=== PATIENT | female | born 1955 | race Caucasian/White ===

== ENCOUNTER 2024-10-10 10:55 | Outpatient (CLI) | payer MEDICARE, MEDICAID, SELFPAY ==
--- OUTSIDE RECORDS SUMMARY | 2024-10-10 11:32 | XMS_ITS | Clinical Summary ---
Author Organization [facility] Address [address] [place] [address] Care Team Providers Care Tobacco Sprayer Name Role Phone Earle Montemayor MD Primary Care Provider [phone] Source Comments [facility],non-owned Affiliates and Associated Physician Practices is amultiple site organization consisting of ambulatory clinics and hospital sitesin [place], [place], [place] and [place]. This disclosure is being madepursuant to the Care Everywhere program and may not contain all information available regarding this patient. Last updated 17.[facility] Allergies No known active allergies Medications * Be aware that medications may not be up to date on this document. Alwaysverify current medications with the patient. levothyroxine (SYNTHROID) 50 MCG tablet Take by mouth DAILY. 7 Active topiramate (TOPAMAX) 25 MG tablet Take 25 mg by mouth BID. 5 Active propranolol (INDERAL) 20 MG tablet Take 20 mg by mouth BID. 7 Active aspirin (ASPIRIN) 81 MG tablet Take 81 mg by mouth. 7 Active albuterol HFA (PROVENTIL;MAURO TOLIN;PROAIR) 108 (90 Base) MCG/ACT inhaler INL 2 PFS PO Q 4 H 0 Active atorvastatin (LIPITOR) 40 MG tablet TAKE 1 TABLET(40 MG) BY MOUTH DAILY 1 Active Blood Glucose Monitoring Suppl (FIFTY50 GLUCOSE METER 2.0) w/Device KIT Use to check blood glucose 2 times each day DX E11.65 1 Active gabapentin (NEURONTIN) 300 MG capsule Take 900 mg by mouth 3 times daily 1 Active Galcanezumab-g nlm (EMGALITY) 120 MG/ML auto-injector pen INJECT SUBCUTANEOUSLY 120MG (THE CONTENTS OF 1 PREFILLED PEN) EVERY 30 DAYS 1 Active blood glucose ([employer] BLOOD GLUCOSE TEST) test strip Check blood sugar 2 times a day Dx E11.65 1 Active insulin glargine (LANTUS SOLOSTAR) pen Inject 30 Units subcutaneously once daily 1 Active insulin pen needle (B-D UF III MINI PEN NEEDLES) 31G X 5 MM needle Use once /day for insulin pen 0 Active Lancets Micro Thin 33G MISC USE TO CHECK BLOOD GLUCOSE TWICE DAILY 1 Active metFORMIN (GLUCOPHAGE) 500 MG tablet TAKE 2 TABLETS BY MOUTH EVERY MORNING AND 1 TABLET BY MOUTH EVERY EVENING 1 Active oxybutynin (DITROPAN) 5 MG tablet Take 5 mg by mouth 3 times daily 1 Active risperiDONE (RISPERDAL) 1 MG tablet Take 1 mg by mouth once daily 1 Active sertraline (ZOLOFT) 100 MG tablet TK 1 T PO D 0 Active Active Problems Problem Noted Date Diagnosed Date Bilateral carpal tunnel syndrome 01/05/2017 Type 2 diabetes mellitus with diabetic polyneuro betsy 01/05/2017 Chronic bilateral low back pain Immunizations Immunization Administration Dates Next Due [facility] primary monoval ent 12+ yr 0.3mL Purple cap 06/25/2020,06/04/2020 Social History Tobacco Use Types Packs/Day Years Used Date Smoking Tobacco: Every Day Cigarettes 1 50 Smokeless Tobacco: Never Tobacco Cessation:Ready to Q uit: Yes; Counseling Given: Yes Alcohol Use Standard Drinks/Week Comments No 0 (1 standard drink = 0.6 oz pur e alcohol) Comments Unknown Sex and Gender Information Value Date Recorded Sex Assigned at Female 12/30/2020 6:30 PM [employer] Legal Sex Female 5:15 PM [employer] Gender Identity Female 12/30/2020 6:30 PM [employer] Sexual Orientation Straight 12/30/2020 6: 30 PM [employer] Last Filed Vital Signs Vital Sign Reading Time Taken Comments Blood Pressure 127/49 02/03/2021 8:42 AM [employer] Pulse 72 02/03/2021 8:42 AM [employer] Temperature 36.3 C (97.4 F) 01/06/2021 9:32 AM [employer] Respiratory Rate 20 01/06/2021 9:32 AM [employer] Oxygen Saturation 97% 02/03/2021 8:42 AM [employer] Inhaled Oxygen Concentration - - Weight 99.8 kg (220 lb) 02/03/2021 8:42 AM [employer] Height 160 cm (5' 3) 02/03/2021 8:42 AM [employer] Body Mass Index 38.97 02/03/2021 8:42 AM [employer] Plan of Treatment Health Maintenance Due Date Last Done Comments BONE DENSITY TESTING 1956 COLOGUARD (AGES 45-75) - COL ON CA SCREENING 1956 CT COLONOGRAPHY - COLON CA SCREENING 1956 FIT - COLON CA SCREENING 1956 FLEX SIG - COLON CA SCREENING 1956 Opioid Medication Agreement - Annual 1956 HEPATITIS C SCREENING 02/27/1974 DTAP/TDAP/TD VACCINES (1 - Tdap) 1975 PNEUMOCOCCAL VACCINE 50+ (1 of 2 - PCV) 1975 LUNG CANCER SCREENING 2006 ZOSTER VACCINE (1 of 2) 2006 Respiratory Syncytial Virus (RSV) Vaccine Pt: or over 60 yrs (1 - Risk 60-74 years 1-dose series) 2016 DIABETES-FOOT EXAM WITH MONOFILAMENT 12/02/2020 DIABETES-HGB A1C 06/25/2021 12/26/2020, 09/24/2020 DIABETES-SERUM CREATININE 12/09/2021 12/09/2020 MAMMOGRAM 09/06/2022 09/06/2020 COVID-19 VACCINE (3 - 2023-2 5 season) 2023 06/25/2020, 06/04/2020 DEPRESSION SCREENING 02/23/2024 DIABETES - URINE PROTEIN SCREENING 02/23/2024 INFLUENZA VACCINE (#1) 2024 12/13/2014 COLON MONITORING 01/08/2031 01/08/2021 COLONOSCOPY - COLON CA SCREENING 01/08/2031 01/08/2021 Colorectal Cancer Screening 01/08/2031 HEPATITIS B VACCINE Aged Out No longe r eligible based on patient's age to complete this topic HIB VACCINE Aged Out No longer eligi ble based on patient's age to complete this topic HPV VACCINE Aged Out No longer eligi ble based on patient's age to complete this topic MENINGOCOCCAL (Group B) VACCINE SHARED DECISION-MAKING Aged Out No longer eligible based on patient's age to complete this topic MENINGOCOCCAL GROUPS A/C/Y/W VACCINE Aged Out No longer eligible b ased on patient's age to complete this topic Medical Devices Implanted Type Area Bereavement Counselor Device Identifier Shelf Expiration Date Model / Serial / Lot Lead Ns 65cm Spc Surescan 3 Clmn 16 Implanted:Qty: 1 on 12/19/2020 by Saulo Strickland MD at [facility] [employer] 10/23/2023 [id number] / / [id number] Description:HELEN Kit Acc .133in Injex Leydi Baso4 Biwing Implanted:Qty: 1 on 12/19/2020 by Saulo Strickland MD at [facility] [employer] Neu[employer] 10/09/2024 [id number] / / [id number] Description:HELEN Slnt Dura Duraseal Pg Trilysine Amine 5 Implanted:Qty: 1 on 12/19/2020 by Saulo Strickland MD at [facility] [employer] Ramona 02/21/2022 [id number] / / Description:HELEN Nrstm Impl Chrnc Pain Rs2 - [id number] Implanted:Qty: 1 on 12/19/2020 by Saulo Strickland MD at [facility] [employer] 10/05/2021 [id number] / [id number] / Description:HELEN Procedures Procedure Name Priority Date/Time Associated Diagnosis Comments BASIC METABOLIC PANEL (CALCIUM TOTAL) Routine 12/09/2020 9:14 AM CDT Pre-op testing from Last 3 Months or Most Recently Relevant to Health Maintenance Results * (ABNORMAL) BASIC METABOLIC PANEL (CALCIUM TOTAL) (12/09/2020 9:14 AM CDT) [facility] Signature Glucose 167(H) 70 - 105 mg/dL 12/09/2020 10:15 AM CDT [facility] Sodium 137 136 - 145 mmol/L 12/09/2020 10:15 AM CDT [facility] Potassium 3.9 3.5 - 5.1 mmol/L 12/09/2020 10:15 AM CDT [facility] Chloride 107 98 - 107 mmol/L 12/09/2020 10:15 AM CDT [facility] CO2 21(L) 23 - 31 mmol/L 12/09/2020 10:15 AM CDT [facility] Calcium 9.2 8.4 - 10.4 mg/dL 12/09/2020 10:15 AM CDT [facility] Anion Gap 9 8 - 18 mmol/L 12/09/2020 10:15 AM CDT [facility] BUN 16 9.8 - 20.1 mg/dL 12/09/2020 10:15 AM CDT [facility] Creatinine 0.78 0.57 - 1.11 mg/dL 12/09/2020 10:15 AM CDT [facility] eGFR by MDRD >60 >60 mL/min/1.7 3m2 12/09/2020 10:15 AM CDT [facility] eGFR by MDRD >60 >60 mL/min/1.7 3m2 12/09/2020 10:15 AM CDT [facility] Blood BLOOD SPECIMEN / Unknown Venipuncture / Unknown 12/09/2020 9:14 AM CDT 12/09/2020 9:46 AM CDT us Saulo Strickland MD LAB - CHEMISTRY ORDERABL ES Final Result [facility] [address] [place] [address] from Last 3 Months or Most Recently Relevant to Health Maintenance Insurance [facility] MANAGED MEDICARE ADV MEDICAID - [facility] MANAGED MEDICARE ADV MEDICAID - [place] Care Teams Tobacco Sprayer Relationship Specialty Start Date End Date Earle Montemayor MD [address] [place] [phone] PCP - General 12/14/16
--- OUTSIDE RECORDS SUMMARY | 2024-10-10 11:32 | XMS_ITS | Clinical Summary ---
Author Organization [facility] Address [address] [place] [address] Care Team Providers Care Electrician Name Role Phone Earle Montemayor MD Primary Care Provider Allergies No known active allergies Medications aspirin (ASPIR-81) 81 mg tablet take 1 tablet by oral route every day 0 0 03/26/19 17 Active levothyroxine (SYNTHROID, LEVOTHROID) 50 mcg tablet manager site before breakfast 07/30/19 17 Active sertraline (ZOLOFT) 100 mg tablet TK 1 T PO D 12/04/19 20 Active risperiDONE (RisperDAL) 1 mg tablet Take 2 tablets (2 mg total) by mouth nightly at bedtime. 09/11/19 21 Active blood-glucose meter kit Use to check blood glucose 2 times each day DX E11.65 1 kit 04/21/19 22 Active ergocalciferol (VITAMIN D) 50,000 unit capsule Take 1 capsule (50,000 Units total) by mouth 05/03/19 22 Active busPIRone (BUSPAR) 10 mg tablet 05/24/19 24 Active risperiDONE (RisperDAL) 2 mg tablet 05/24/19 24 Active solifenacin (VESIcare) 10 mg tablet Take 1 tablet (10 mg total) by mouth daily 05/24/19 24 Active lancets (Micro Thin Lancets) 33 gauge miscIndications:D iabetic polyneuropathy associated with type 2 diabetes mellitus (HCC) USE TO CHECK BLOOD GLUCOSE 3 times DAILY 300 each 3 06/15/19 24 Active blood glucose diagnostic (Accu-Chek Guide test strips) stripIndications: Diabetic polyneuropathy associated with type 2 diabetes mellitus (HCC) USE TO CHECK BLOOD SUGAR THREE TIMES DAILY 300 strip 3 06/15/19 24 Active Accu-Chek Softclix Lancets lancets USE TO CHECK BLOOD GLUCOSE THREE TIMES DAILY 06/15/19 24 Active atorvastatin (LIPITOR) 40 mg tabletIndications :Other chest pain TAKE 1 TABLET(40 MG) BY MOUTH DAILY 90 tablet 3 11/23/19 24 Active Emgality Pen 120 mg/mL pen injector INJECT SUBCUTANEOUSLY 120 MG (THE CONTENTS OF 1 PREFILLED PEN) EVERY 30 DAYS 3 mL 3 12/15/19 24 Active SUMAtriptan (IMITREX) 100 mg tabletIndications :Migraine without aura and without status migrainosus, not intractable TAKE 1 TABLET(100 MG) BY MOUTH 1 TIME FOR UP TO 1 DOSE NEEDED FOR MIGRAINE HEADACHE. JUNE REPEAT 1 TIME AFTER 2 HOURS NEEDED 9 tablet 1 03/24/19 25 Active ondansetron (ZOFRAN) 8 mg tablet Take 1 tablet (8 mg total) by mouth 2 (two) times a day as needed 03/09/19 25 Active topiramate (TOPAMAX) 25 mg tablet TAKE 3 TABLETS BY MOUTH TWICE DAILY 600 tablet 2 04/25/19 25 Active gabapentin (NEURONTIN) 600 mg tabletIndications :Diabetic Peripheral Neuropathy Take 2 tablets (1,200 mg total) by mouth 3 (three) times a day E11.65 540 tablet 4 05/05/19 25 Active tirzepatide (Mounjaro) 7.5 mg/0.5 mL pen injector injectionIndicati ons:type 2 diabetes mellitus Inject 0.5 mL (7.5 mg total) under the skin once a week E11.9 6 mL 4 08/04/19 25 Active modafiniL (PROVIGIL) 200 mg tabletIndications :Hypersomnia with sleep apnea TAKE 1 TABLET(200 MG) BY MOUTH DAILY 90 tablet 09/05/19 25 Active dextroamphetamine -amphetamine (ADDERALL) 20 mg tabletIndications :Hypersomnia with sleep apnea Take 1 tablet (20 mg total) by mouth daily 30 tablet 09/28/19 25 Active dextroamphetamine -amphetamine (ADDERALL) 20 mg tabletIndications :Hypersomnia with sleep apnea Take 1 tablet (20 mg total) by mouth daily 30 tablet 08/29/19 25 025 Arnaud heart(Reo rder) Active Problems Problem Noted Date Diagnosed Date Type 2 diabetes mellitus wit h hypoglycemia without coma, without long-term current use of insulin 08/03/2024 Assessment & Plan (08/03/2024 4:40 PM CDT): A1c at goal with hypoglycemia Stop metformin Increase mounjaro to 7.5 mg weekly Acquired hypothyroidism 05/03/2024 Assessment & Plan (08/03/2024 4:40 PM CDT): at goal of TSH between 0.45 to 4.5 mclUnits/ml Continue levothyroxine 50 mcg daily Discussed the importance of taking Levothryoxine on a empty stomach, which means one hour before eating or two hours after eating. Informed Food in the stomach will interfere with absorption of Levothyroxine. Informed Calcium, antacids and iron supplements will interfere with the absorption of Levothyroxine, encouraged to take these at a different time of the day. freestyle roni continuous glucose monitoring de vice 01/26/2024 Assessment & Plan (08/03/2024 4:33 PM CDT): Continuous glucose monitor (cgm) applied from 07/21/2024 to 08/03/2024 This device was placed for monitor and treatment of blood sugar. Interpretation of data- average glucose 98. In target range 96%. 4% hypoglycemia. 0% hyperglycemia. GMI is 5.7%. Assessment & Plan (05/03/2024 1:22 PM CDT): Continuous glucose monitor (cgm) applied from 04/19/2024 to 05/02/2024. This device was placed for monitor and treatment of blood sugar. Interpretation of data- average glucose 82. In target range 75%. 25% hypoglycemia. 0% hyperglycemia. GMI is 5.3%. Stop Lantus insulin Assessment & Plan (01/26/2024 5:23 PM TRAIN GATE ATTENDANT): Continuous glucose monitor (cgm) applied from 01/12 to 01/26/2024 This device was placed for monitor and treatment of blood sugar. Interpretation of data- average glucose 152. In target range 74%. 2% hypoglycemia. 24% hyperglycemia. GMI is 6.9% Dizziness 10/08/2023 Bradycardia 09/30/2021 Pre-operative cardiovascular examination 021 Assessment & Plan (01/24/2021 11:46 AM TRAIN GATE ATTENDANT): Patient should have no increased cardiovascular risk for any planned back surgery or need for general anesthesia. Her aspirin can be stopped at any time prior to surgery. Abnormal stress test 11/06/2020 Overview (11/06/2020): Added automatically from request for surgery [id number] History of colon polyps 10/30/2020 Overview (10/30/2020): Added automatically from request for surgery [id number] Screen for colon cancer 10/30/2020 Overview (10/30/2020): Added automatically from request for surgery [id number] Type 2 diabetes mellitus wit h diabetic polyneuropathy, with long-term current use of insulin 12/28/2019 Assessment & Plan (08/03/2024 4:39 PM CDT): This is a chronic condition which is at goal with hypoglycemia . Goal is less than 7%. Personally reviewed most recent A1c - Lab Results Component Value Date HGBA1C 5.4 08/03/2024 Personally reviewed POC blood sugar- at goal of 80-180 Lab Results Component Value Date POCGLU 108 08/03/2024 Medication- stop metformin, increase mounjaro to 7.5 mg weekly. Denies any nausea vomiting or abdominal pain. No history of pancreatitis or thyroid cancer Monitor blood sugar continuously with freestyle Roni cgm. Encouraged annual eye exam. Monofilament foot exam completed. Protective senses not intact Continue Gabapentin eGFR- 76 Kidney function-abnormal Urine microalbumin/creatinine ratio - at goal. Goal is <30 not treated with GORDON/ARB Assessment & Plan (01/26/2024 5:21 PM TRAIN GATE ATTENDANT): This is a chronic condition which is at goal . Goal is less than 7%. Personally reviewed most recent A1c - Lab Results Component Value Date HGBA1C 7.0 01/26/2024 Personally reviewed POC blood sugar- at goal of 80-180 Lab Results Component Value Date POCGLU 172 01/26/2024 Medication- Continue Lantus insulin 26 Units Qhs, Metformin 1000 mg Qam and 500 mg Qpm. Start mounjaro 2.5mg weekly. Monitor blood sugar continuously with cgm. Encouraged annual eye exam. Monofilament foot exam completed. Protective senses - not intact Continue Gabapentin. Stable on current dose eGFR- 76 Kidney function-normal Urine microalbumin/creatinine ratio - at goal. Goal is <30 Assessment & Plan (10/18/2023 4:08 PM CDT): This is a chronic condition which is at goal . Goal is less than 7%. Personally reviewed most recent A1c - Lab Results Component Value Date HGBA1C 6.7 10/18/2023 Personally reviewed POC blood sugar- at goal of 80-180 Lab Results Component Value Date POCGLU 174 10/18/2023 Medication- Continue Lantus insulin 26 Units Qhs, Metformin 1000 mg Qam and 500 mg Qpm Monitor blood sugar 2 times a day. Continuously with freestyle Roni 3 cgm. Encouraged annual eye exam. last dilated eye exam was [facility] Monofilament foot exam completed. Loss Protective senses Treated with Gabapentin. Ambulatory referral to Dr. Rodgers for diabetic foot care eGFR- 77 Kidney function-normal Urine microalbumin/creatinine ratio - at goal. Goal is <30 not treated with GORDON/ARB Assessment & Plan (01/28/2023 2:36 PM TRAIN GATE ATTENDANT): History of type 2 DM diagnosed 2012. Started insulin December/2019 Control : in good control without hypoglycemia A1c 6.5% on 01/28/23 A1c 6.7% on 09/28/22 A1c 6.3% on 05/28/22 A1c 6.1% on 01/26/22 A1c 6.8% on 09/09/21 A1c 6.2% on 05/08/21 A1c 7.1% on 12/26/20 Neuropathy : symptomatic on medications Kidney : normal GFR 98 on 01/26/22 Plan: Patient to watch diet checking sugars 2 x per day Continue Lantus insulin 25 units /day . Continue Metformin 1000 mg Qam- 500 mg Qpm Monitor sugars 3 x per day Hypoglycemia symptoms and treatment reviewed with patient. Call if having low sugars Retina exam on annual basis. Assessment & Plan (09/28/2022 2:44 PM CDT): History of type 2 DM diagnosed 2012. Started insulin December/2019 Control : in good control without hypoglycemia A1c 6.7% on 09/28/22 A1c 6.3% on 05/28/22 A1c 6.1% on 01/26/22 A1c 6.8% on 09/09/21 A1c 6.2% on 05/08/21 A1c 7.1% on 12/26/20 Neuropathy : symptomatic on medications Kidney : normal GFR 98 on 01/26/22 Plan: Patient to watch diet checking sugars 2 x per day Continue Lantus insulin 25 units /day . Continue Metformin 1000 mg Qam- 500 mg Qpm Monitor sugars 3 x per day Hypoglycemia symptoms and treatment reviewed with patient. Call if having low sugars Retina exam on annual basis. Assessment & Plan (05/28/2022 1:30 PM CDT): History of type 2 DM diagnosed 2012. Started insulin December/2019 Control : in good control without hypoglycemia A1c 6.3% on 05/28/22 A1c 6.1% on 01/26/22 A1c 6.8% on 09/09/21 A1c 6.2% on 05/08/21 A1c 7.1% on 12/26/20 Neuropathy : symptomatic on medications Kidney : normal GFR 98 on 01/26/22 Plan: Patient to watch diet checking sugars 2 x per day Continue Lantus insulin 25 units /day . Continue Metformin 1000 mg Qam- 500 mg Qpm Monitor sugars 3 x per day Hypoglycemia symptoms and treatment reviewed with patient. Call if having low sugars Retina exam on annual basis. Assessment & Plan (01/26/2022 1:31 PM TRAIN GATE ATTENDANT): History of type 2 DM diagnosed 2012. Started insulin December/2019 Control : in tight control A1c 6.1% on 01/26/22 A1c 6.8% on 09/09/21 A1c 6.2% on 05/08/21 A1c 7.1% on 12/26/20 A1c 7.2% on 09/24/20 A1c 12.9% on 12/28/19 Neuropathy : symptomatic on medications Kidney : normal kidney functions -GFR >60 on 12/09/20 Plan: Patient to watch diet checking sugars 2 x per day Decrease Lantus insulin 28 units /day . Continue Metformin 1000 mg Qam- 500 mg Qpm Monitor sugars 3 x per day Hypoglycemia symptoms and treatment reviewed with patient. Call if having low sugars Retina exam on annual basis. Assessment & Plan (09/09/2021 2:18 PM CDT): History of type 2 DM diagnosed 2012. Started insulin December/2019 Control : in good control A1c 6.8% on 09/09/21 A1c 6.2% on 05/08/21 A1c 7.1% on 12/26/20 A1c 7.2% on 09/24/20 A1c 12.9% on 12/28/19 Neuropathy : symptomatic on medications Kidney : normal kidney functions -GFR >60 on 12/09/20 Plan: Patient to watch diet checking sugars 2 x per day continue Lantus insulin 28 units /day . Continue Metformin 1000 mg Qam- 500 mg Qpm Monitor sugars 3 x per day Hypoglycemia symptoms and treatment reviewed with patient. Call if having low sugars Retina exam on annual basis. Assessment & Plan (05/08/2021 2:33 PM CDT): History of type 2 DM diagnosed 2012. Started insulin December/2019 Control : in tight control A1c 6.2% on 05/08/21 A1c 7.1% on 12/26/20 A1c 7.2% on 09/24/20 A1c 7.3% on 06/27/20 A1c 7.2% on 03/28/20. A1c 12.9% on 12/28/19 Neuropathy : symptomatic on medications Kidney : normal kidney functions -GFR >60 on 12/09/20 Plan: Patient to watch diet checking sugars 2 x per day Decrease Lantus insulin 28 units /day . Continue Metformin 1000 mg Qam- 500 mg Qpm Monitor sugars 3 x per day Hypoglycemia symptoms and treatment reviewed with patient. Call if having low sugars Retina exam on annual basis. Assessment & Plan (12/26/2020 1:41 PM CDT): History of type 2 DM diagnosed 2012. Started insulin December/2019 Control : reasonable control A1c 7.1% on 12/26/20 A1c 7.2% on 09/24/20 A1c 7.3% on 06/27/20 A1c 7.2% on 03/28/20. A1c 12.9% on 12/28/19 Neuropathy : symptomatic on medications Kidney : normal kidney functions -GFR >60 on 12/09/20 Plan: Patient to watch diet checking sugars 2 x per day Continue Lantus insulin at 30 units /day . Continue Metformin 1000 mg Qam- 500 mg Qpm Monitor sugars 3 x per day Hypoglycemia symptoms and treatment reviewed with patient. Call if having low sugars Retina exam on annual basis. Assessment & Plan (09/24/2020 1:29 PM CDT): History of type 2 DM diagnosed 2012. Started insulin December/2019 Control : not at target- fluctuation in sugars based on diet A1c 7.2% on 09/24/20 A1c 7.3% on 06/27/20 A1c 7.2% on 03/28/20. A1c 12.9% on 12/28/19 Neuropathy : symptomatic on medications Kidney : normal kidney functions -GFR 88 on 12/19/19 Plan: Patient to watch diet checking sugars 2 x per day Continue Lantus insulin at 30 units /day . Continue Metformin 1000 mg Qam- 500 mg Qpm Monitor sugars 3 x per day Hypoglycemia symptoms and treatment reviewed with patient. Call if having low sugars Retina exam on annual basis. Assessment & Plan (06/27/2020 2:31 PM CDT): History of type 2 DM diagnosed 2012. Started insulin December/2019 Control : not at target- fluctuation in sugars based on diet A1c 7.3% on 06/27/20 A1c 7.2% on 03/28/20. A1c 12.9% on 12/28/19 A1c was 7.4% on 07/09/17. Her A1c was 6.5% in Neuropathy : symptomatic on medications Kidney : normal kidney functions -GFR 88 on 12/19/19 Plan: Patient to watch diet checking sugars 2 x per day Continue Lantus insulin at 30 units /day . Continue Metformin 1000 mg Qam- 500 mg Qpm Monitor sugars 3 x per day Hypoglycemia symptoms and treatment reviewed with patient. Call if having low sugars Retina exam on annual basis. Assessment & Plan (03/28/2020 2:32 PM TRAIN GATE ATTENDANT): History of type 2 DM diagnosed 2012. Started insulin December/2019 Control : fluctuation in sugars based on diet Over all improved control A1c 7.2% on 03/28/20. A1c 12.9% on 12/28/19 A1c was 7.4% on 07/09/17. Her A1c was 6.5% in Neuropathy : symptomatic on medications and seeing Neurology Kidney : normal kidney functions -GFR 88 on 12/19/19 Plan: Patient to continue ADA diet. checking sugars 2 x per day Continue Lantus insulin at 30 units /day but can decrease to28 units Qhs if am sugars < 90. Continue Metformin 1000 mg Qam- 500 mg Qpm Monitor sugars 3 x per day Hypoglycemia symptoms and treatment reviewed with patient. Call if having low sugars Retina exam on annual basis. Assessment & Plan (01/26/2020 2:09 PM TRAIN GATE ATTENDANT): History of type 2 DM diagnosed 2012. She was on Metformin in 2017 . Started insulin December/2019 Control : pm hyperglycemia, but overall improvement in diabetes control after starting insulin. A1c 12.9% on 12/28/19 A1c was 7.4% on 07/09/17. Her A1c was 6.5% in Neuropathy : symptomatic on medications and seeing Neurology Kidney : normal kidney functions -GFR 88 on 12/19/19 Plan: Patient to continue ADA diet. checking sugars 2 x per day Continue Lantus insulin 28 units Qhs. Increase Metformin 1000 mg Qam- 500 mg Qpm Send blood sugars in 2 week. Target am sugars 90-150. Hypoglycemia symptoms and treatment reviewed with patient. Call if having low sugars Retina exam on annual basis. Assessment & Plan (12/28/2019 4:54 PM TRAIN GATE ATTENDANT): History of type 2 DM diagnosed 2012. She was on Metformin in 2018 . Control : very high sugars with symptoms Had blood sugar of 430 A1c 12.9% on 12/28/19 A1c was 7.4% on 07/09/17. Her A1c was 6.5% in Neuropathy : symptomatic on medications and seeing Neurology Kidney : normal kidney functions -GFR 88 on 12/19/19 Plan: Patient asked to start ADA diet- low carbs - 3 meals . Start checking sugars 2 x per day Start Lantus insulin 14 units Qhs. Start Metformin 500 mg bid. Send blood sugars in one week. Target am sugars 90-150. Hypoglycemia symptoms and treatment reviewed with patient. Call if having low sugars Retina exam on annual basis. Mixed diabetic hyperlipidemi a associated with type 2 diabetes mellitus 10/11/2019 Assessment & Plan (08/03/2024 4:40 PM CDT): at Goal of LDL less than 70. Continue atorvastatin Encouraged to eat healthy, include fresh fruits and vegetables daily and avoid eating fried foods more than once per week. Assessment & Plan (01/26/2024 5:21 PM TRAIN GATE ATTENDANT): This is a chronic condition which is at goal . Goal is LDL less than 70 Continue atorvastatin Encouraged to eat healthy, include fresh fruits and vegetables daily and avoid eating fried foods more than once per week. Assessment & Plan (10/18/2023 2:36 PM CDT): This is a chronic condition which is at . Goal is LDL less than 70 Continue atorvastatin Encouraged to eat healthy, include fresh fruits and vegetables daily and avoid eating fried foods more than once per week. Assessment & Plan (06/15/2023 2:25 PM CDT): This is a chronic condition which is at goal . Goal is LDL less than 70 Continue atorvastatin,. Triglycerides elevated at 152 Encouraged to eat healthy, include fresh fruits and vegetables daily and avoid eating fried foods more than once per week. Encouraged to take medications as prescribed. Assessment & Plan (01/28/2023 2:35 PM TRAIN GATE ATTENDANT): Controlled with Lipitor - low fat diet - continue medication per PCP Assessment & Plan (09/28/2022 2:44 PM CDT): Controlled with Lipitor - low fat diet - continue medication per PCP Assessment & Plan (05/28/2022 1:31 PM CDT): Controlled with Lipitor - low fat diet - continue medication per PCP Assessment & Plan (01/26/2022 1:30 PM TRAIN GATE ATTENDANT): Controlled with Lipitor - low fat diet - continue medication per PCP Assessment & Plan (09/09/2021 2:21 PM CDT): Controlled with Lipitor - low fat diet - continue medication per PCP Assessment & Plan (05/08/2021 2:33 PM CDT): Controlled with Lipitor - low fat diet - continue medication per PCP Assessment & Plan (12/26/2020 1:41 PM CDT): Controlled with Lipitor - low fat diet - continue medication per PCP Assessment & Plan (03/28/2020 2:33 PM TRAIN GATE ATTENDANT): Controlled with Lipitor - low fat diet - continue medication per PCP Assessment & Plan (10/11/2019 1:42 PM CDT): Patient's lipid profile from April looked excellent with an LDL value of 50 mg/dL. Bilateral carotid artery stenosis 04/19/2019 Assessment & Plan (01/24/2021 11:45 AM TRAIN GATE ATTENDANT): Patient has mild carotid disease and should continue with aggressive secondary risk factor modification. Her ultrasound in 1-2 years would be suggested Assessment & Plan (10/21/2020 2:54 PM CDT): It has been 18 months since we have evaluated her moderate carotid disease. We will update this with more recent carotid duplex. Assessment & Plan (10/11/2019 1:41 PM CDT): Patient remains asymptomatic with her mild bilateral carotid artery stenosis. She will continue with aggressive secondary risk factor modification. Thoracic aortic atherosclerosis 01/17/2019 Overview (01/17/2019): Identified on chest CT 2014 Smoker 12/16/2018 Assessment & Plan (01/24/2021 11:45 AM TRAIN GATE ATTENDANT): I did again stressed the importance of smoking cessation Assessment & Plan (10/21/2020 2:55 PM CDT): I again stressed the importance of smoking cessation. Assessment & Plan (10/11/2019 1:41 PM CDT): I commended the patient on her efforts toward smoking cessation as she is now down to 4 cigarettes a day. I have encouraged her to continue to be striving for complete cessation. Other chest pain 12/15/2018 Assessment & Plan (01/24/2021 11:43 AM TRAIN GATE ATTENDANT): Patient's chest pain at this point is noncardiac. Because of her diabetes she will continue with aggressive secondary risk factor modification. Assessment & Plan (10/21/2020 2:55 PM CDT): In light of the patient's known diabetes and known atherosclerotic disease a plan to further investigate her chest discomfort with Lexiscan stress testing. If she has no new defects compared to November of 2018 we will continue with conservative management. Shortness of breath 12/15/2018 Bilateral carpal tunnel syndrome 02/01/2017 Paronychia of toe 06/24/2016 Fibromyalgia 11/12/2015 Weight loss 11/30/2014 Hypersomnia with sleep apnea 05/29/2013 Obstructive sleep apnea syndrome 09/28/2011 Essential hypertension 09/28/2011 Assessment & Plan (08/03/2024 4:41 PM CDT): Blood pressure at goal without medication Chronic headache 04/28/2011 Overview (05/29/2016): Chronic headaches Hypersomnia 04/28/2011 Overview (05/29/2016): Hypersomnia Class 1 obesity due to exces s calories with serious comorbidity and body mass index (BMI) of 31.0 to 31.9 in adult 04/28/2011 Overview (06/15/2023): >>OVERVIEW FOR SEVERE OBESITY (BMI 35.0-35.9 WITH COMORBIDITY) ([facility]) WRITTEN ON 05/29/2016 5:21 AM BY INTERFACE, PROBLEM LIST CONVERSION Obesity Assessment & Plan (08/03/2024 4:41 PM CDT): Not at Goal of BMI less than 30. 14 lb weight loss since last office visit. Increase mounjaro to 7.5 mg weekly Encouraged healthy eating which includes a low carb diet. Avoiding processed foods, sweets and fried foods. Encouraged 30 minutes of walking at least 5 days per week. Encouraged to weigh self at home weekly. Discussed that exercise can be broken down into small sessions- for example 2- 15 minutes sessions or 3- 10 minutes sessions. Assessment & Plan (01/26/2024 5:21 PM TRAIN GATE ATTENDANT): This is a chronic condition which continues 4 lbs. Weight gain since last office visit Start mounjaro Encouraged healthy eating which includes a low carb diet. Avoiding processed foods, sweets and fried foods. Encouraged 30 minutes of walking at least 5 days per week Discussed that exercise can be broken down into small sessions- for example 2- 15 minutes sessions or 3- 10 minutes sessions. Assessment & Plan (10/18/2023 2:37 PM CDT): This is a chronic condition which continues Weight stable since last office visit Encouraged healthy eating which includes a low carb diet. Avoiding processed foods, sweets and fried foods. Encouraged 30 minutes of walking at least 5 days per week Discussed that exercise can be broken down into small sessions- for example 2- 15 minutes sessions or 3- 10 minutes sessions. Assessment & Plan (06/15/2023 2:28 PM CDT): This is a chronic condition which continues Weight stable since last office visit Encouraged healthy eating which includes a low carb diet. Avoiding processed foods, sweets and fried foods. Encouraged 30 minutes of walking at least 5 days per week Assessment & Plan (06/15/2023 2:27 PM CDT): >>ASSESSMENT AND PLAN FOR SEVERE OBESITY (BMI 35.0-35.9 WITH COMORBIDITY) (HCC) WRITTEN ON 10/11/2019 1:41 PM BY SARAH CISNEROS DO The I commended the patient on her excellent weight loss efforts of 20 lb. Chronic bronchitis 10/01/2010 Resolved Problems Problem Noted Date Diagnosed Date Resolved Date Diabetic polyneuropathy asso ciated with type 2 diabetes mellitus 06/24/2016 10/18/2023 Assessment & Plan (06/15/2023 2:25 PM CDT): This is a chronic condition which is at goal . Goal is less than 7%. Personally reviewed most recent A1c - Lab Results Component Value Date HGBA1C 6.6 06/15/2023 Personally reviewed POC blood sugar- at goal of 80-180 Lab Results Component Value Date POCGLU 114 06/15/2023 Medication- Continue Lantus insulin 26 Units Qhs, Metformin 1000 mg Qam and 500 mg Qpm Monitor blood sugar 2 times a day. Encouraged annual eye exam. last dilated eye exam was [facility] Peripheral neuropathy Treated with Gabapentin. Feels neuropathy is worsening. Sees pain management. Feels gabapentin helps take the edge off but does not stopped the pain Personally reviewed CMP eGFR- 77 Kidney function-abnormal Urine microalbumin/creatinine ratio - at goal. Goal is <30 not treated with GORDON/ARB B/P today- at goal . Goal is <140/90. Assessment & Plan (06/15/2023 2:22 PM CDT): >>ASSESSMENT AND PLAN FOR TYPE 2 DIABETES MELLITUS WITH DIABETIC POLYNEUROPATHY (HCC) WRITTEN ON 06/27/2020 2:29 PM BY JONNY BRAY MD Responding to gabapentin - continue medication - educated about foot care. Assessment & Plan (06/15/2023 2:22 PM CDT): >>ASSESSMENT AND PLAN FOR TYPE 2 DIABETES MELLITUS WITH DIABETIC POLYNEUROPATHY (HCC) WRITTEN ON 09/24/2020 1:34 PM BY JONNY BRAY MD Patient also has back problems and seeing pain management - continue gabapentin per pain specialist Encounters Date Type Department Care Team Description 08/17/2024 Results Follow-Up [facility] at [address] [phone] Dionne Fortune NP Basic metabolic panel, eGFR 08/16/2024 3:00 PM CDT Lab [facility] - Outpatient Center at [address] [address] Hyponatremia 08/16/2024 Results Follow-Up [facility] at [address] [phone] Natividad Olea MA Lipid panel, Comprehensive metabolic panel, Albumin Creatinine Ratio, Urine, eGFR 08/13/2024 Orders Only [facility] at [address] [phone] Dionne Fortune NP Hyponatremia (Primary Dx) 08/03/2024 2:50 PM CDT Lab [facility] - Outpatient Center at [address] [address] Type 2 diabetes mellitus with diabetic polyneuropathy, with long-term current use of insulin (HCC) 08/03/2024 2:00 PM CDT Office Visit [facility] at [address] [phone] Dionne Fortune, MADINA Type 2 diabetes mellitus with diabetic polyneuropathy, without long-term current use of insulin (HCC) (Primary Dx); Type 2 diabetes mellitus with hypoglycemia without coma, without long-term current use of insulin (HCC); Mixed diabetic hyperlipidemia associated with type 2 diabetes mellitus (HCC); Acquired hypothyroidism; Essential hypertension; freestyle roni continuous glucose monitoring device; Class 1 obesity due to excess calories with serious comorbidity and body mass index (BMI) of 31.0 to 31.9 in adult 07/11/2024 2:00 PM CDT Office Visit [facility] [address] [place] [address] [address] [place] [phone] Birdie Mc MD Hypersomnia with sleep apnea (Primary Dx); ELVIS (obstructive sleep apnea); Migraine without aura and without status migrainosus, not intractable; Severe obesity (BMI 35.0-35.9 with comorbidity) (HCC) from Last 3 Months Surgical History Surgery Date Site/Laterality Comments HYSTERECTOMY 02/22/2003 - 02/22/2004 Hysterectomy BREAST CYST ASPIRATION Left FRACTURE SURGERY TUBAL LIGATION 02/22/1983 - 02/22/1984 COLONOSCOPY 01/30/2015 Medical History Medical History Date Comments Bipolar I disorder (HCC) Bipolar I Hx Other Medical Anoriexia/bulim ia Anxiety disorder Anxiety Hx Other Medical Headache, migra ine Depression Depression Rheumatic fever Rheumatic fever Hx Other Medical Mental illness Smoking Hypertension Carotid artery disease Chest pain Shortness of breath Diabetes mellitus (HCC) Hyperlipidemia Sleep apnea Migraines Stroke (HCC) Thyroid disease Aneurysm AAA (abdominal aortic aneurysm) COPD (chronic obstructive pulmonary disease) Type 2 diabetes mellitus Arthritis Family History Medical History Relation Name Comments Cancer Father Howie Other Father Howie unknown; Cause of : unknown Breast cancer Father's Sister Arthritis Maternal Grandmother Aubree Gomezysm Mother Heide aneurysm; Cause of : aneurysm Depression Mother Heide Diabetes Mother Heide Mental illness Mother Heide Cancer Other 1 Family history of Cancer; Diabetes Other 2 Family history of Diabetes mellitus; Hypertension Other 3 Family history of Hypertension; Migraines Other 4 Family history of Migraine; Kidney disease Other 5 Family histor y of Renal disease; Seizures Other 6 Family history of Seizure disorder; Other Other 7 Family history of psychiatric disease; Other Other 8 Family history of aneurysm; Other Other 9 Family history of Tuberculosis; Hypertension Burt Kirk Kidney disease Burt Kirk Relation Name Status Comments Father Howie (Age 70) Father's Sister Maternal Grandmother Aubree Mother Heide (Age 49) Other 1 Other 2 Other 3 Other 4 Other 5 Other 6 Other 7 Other 8 Other 9 Burt Kirk Social History Tobacco Use Types Packs/Day Years Used Date Smoking Tobacco: Every Day Cigarettes 1 15 Started: 12/24/2003; Last attempted to quit: 12/23/2018 Smokeless Tobacco: Never Tobacco Cessation:Ready to Q uit: Not Asked; Counseling Given: Not Answered Alcohol Use Standard Drinks/Week Comments No 0 (1 standard drink = 0.6 oz pur e alcohol) AUDIT-C Answer Date Recorded Q1: How often do you have a drink containing alc ohol? 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 Gender Identity Female 12/16/2020 7:18 AM CDT Sexual Orientation Straight 09/07/2019 9: 26 AM CDT Obstetrics History Para Term AB IAB SAB Ectopic Multiple Livin g Live Births 5 4 4 Date Outcome GA Total Labor Labor/3rd Weight Sex Type Anes PTL Dotty A1 A5 Name Clin Term Term Term Term Last Filed Vital Signs Vital Sign Reading Time Taken Comments Blood Pressure 100/70 08/03/2024 2:22 PM CDT Pulse 72 07/11/2024 1:53 PM CDT Temperature 36.4 C (97.6 F) 06/20/2021 12:37 PM CDT Respiratory Rate 18 12/15/2022 2:15 PM CDT Oxygen Saturation 96% 07/11/2024 1:53 PM CDT Inhaled Oxygen Concentration - - Weight 81.8 kg (180 lb 6.4 oz) 08/03/2024 2:22 P M CDT Height 160 cm (5' 2.99) 08/03/2024 2:22 PM CDT Body Mass Index 31.97 08/03/2024 2:22 PM CDT Plan of Treatment Health Maintenance Due Date Last Done Comments Hepatitis C Screening 1955 Hepatitis B Screening 1974 Zoster Vaccine (1 of 2) 2006 Pneumococcal vaccine 65+ (2 of 2 - PPSV23, PCV20, or PCV21) 11/24/2017 09/29/2017 Depression Screening 12/16/2019 12/15/2018, 12/15/2018, 02/01/2017 Well Visit 65+ 2021 Fall Risk Assessment 01/08/2022 01/08/2021 Influenza Vaccine (#1) 2024 9, 03/04/2016, 12/13/2014, Additional history exists Lung Cancer Screening 11/19/2024 11/19/2023 , 04/20/2023, 03/07/2021 Breast Cancer Screening-Mammogram 12/02/2024 12/03/2023, 10/10/2022, 10/10/2022, Additional history exists Foot Exam 01/25/2025 01/26/2024, 09/23, 09/28/2022, Additional history exists Hemoglobin A1C 02/02/2025 08/03/2024, 04/22, 01/26/2024, Additional history exists Osteoporosis Screening-Bone Density Scan 04/02/2025 04/02/2023, 03/24/2021 Dilated Eye Exam 06/22/2025 06/23/2023, 09/20/2019 Albumin Creatinine Ratio, Urine 08/03/2025 08/03/2024, 10/18/2023, 01/28/2023, Additional history exists Lipid Panel 08/03/2025 08/03/2024, 09/23, 01/28/2023, Additional history exists eGFR 08/16/2025 08/16/2024, 07/23, 10/18/2023, Additional history exists DTaP/Tdap/Td Vaccine (2 - Td or Tdap) 09/06/2030 09/06/2020 Colon Cancer Screening-Colonoscopy 01/08/2031 01/08/2021, 01/30/2015, 01/30/2015, Additional history exists Colon Cancer Screening-CT Colonography Discontinued 01/08/2021, 01/30/2015, 01/30/2015, Additional history exists Colon Cancer Screening-DNA Stool Discontinued 01/08/2021, 01/30/2015, 01/30/2015, Additional history exists Colon Cancer Screening-FIT Discontinued 01/08, 01/30/2015, 01/30/2015, Additional history exists Colon Cancer Screening-Sigmoidoscopy Discontinued 01/08/2021, 01/30/2015, 01/30/2015, Additional history exists Medical Devices Implanted 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 Device 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 Shelf Expiration Date Model / Serial / Lot [employer] [id number] Angio-Seal Evolution 6fr .035in Guidewire Bypass Tube Suture - [id number] Implanted:Qty: 1 on 11/15/2020 by Sumit Mares MD at [facility] Other - see comments [employer] 05/22/2021 [id number] / / [id number] Procedures Procedure Name Priority Date/Time Associated Diagnosis Comments EGFR Routine 08/16/2024 2:59 PM CDT Hyponatremia BASIC METABOLIC PANEL Routine 08/16/2024 2:59 PM CDT Hyponatremia EGFR Routine 08/03/2024 2:54 PM CDT Type 2 diabetes mellitus with diabetic polyneuropathy, with long-term current use of insulin (HCC) ALBUMIN CREATININE RATIO, URINE Routine 08/03/2024 2:54 PM CDT Type 2 diabetes mellitus with diabetic polyneuropathy, with long-term current use of insulin (HCC) COMPREHENSIVE METABOLIC PANEL Routine 08/03/2024 2:54 PM CDT Type 2 diabetes mellitus with diabetic polyneuropathy, with long-term current use of insulin (HCC) LIPID PANEL Routine 08/03/2024 2:54 PM CDT Type 2 diabetes mellitus with diabetic polyneuropathy, with long-term current use of insulin (HCC) POCT HEMOGLOBIN A1C Routine 08/03/2024 2 :24 PM CDT Type 2 diabetes mellitus with diabetic polyneuropathy, without long-term current use of insulin (HCC) POCT GLUCOSE Routine 08/03/2024 2:23 PM CDT Type 2 diabetes mellitus with diabetic polyneuropathy, without long-term current use of insulin (HCC) SCREENING MAMMOGRAM BILATERAL W ANTHONY Schedule Routine, Read Routine (OP Routine) 12/03/2023 2:54 PM CDT Screening mammogram, encounter for CT CHEST WO CONTRAST F/U LUNG SCREEN PROTOCOL Schedule Routine, Read Routine (OP Routine) 11/19/2023 1:39 PM CDT Other nonspecific abnormal finding of lung field DIABETIC EYE EXAM Routine 06/23/2023 DEXA AXIAL SKELETON BONE DENSITY 1 OR MORE SITES Schedule Routine, Read Routine (OP Routine) 04/02/2023 1:27 PM 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 73 m2 Comment: Interpretive Data Reference Interval Normal >/= 90 mL/min/1.73m2 Mildly decreased* 60 - 89 mL/min/1.73m2 Mildly to moderately decreased 45 - 59 mL/min/1.73m2 Moderately to severely decreased 30 - 44 mL/min/1.73m2 Severely decreased 15 - 29 mL/min/1.73m2 Kidney Failure < 15 mL/min/1.73m2 *Relative to young adult level Estimated glomerular filtration rate is determined by the 2020 CKD-EPI equation recommended by the National Kidney Foundation (A Unifying Approach to GFR Estimation: Recommendations of the NKF-ASK Task Force on Reassessing the Inclusion of Race in Diagnosing Kidney Disease, JASN 2020). The CKD-EPI equation should not be used for patients with unstable renal function and has not been validated in children and those over 70. Current interpretive data was last reviewed 2020. Testing performed by: , [address] [place] [address], [place]., [address] Blood 08/16/2024 2:59 PM CDT 08/16/2024 6:49 PM CDT us Dionne Fortune NP LAB BLOOD ORDERABLES Final Resu lt SELIN [address] Department [place] [address] * (ABNORMAL) Basic metabolic panel (08/16/2024 2:59 PM CDT) Sodium 134(L) 135 - 145 mmol/L Comment:Testing performed by : [address] [address] Potassium, pl 4.0 3.3 - 4.9 mmol/L CERNER CH Comment:Testing performed by : [address], [address] Chloride 98 97 - 110 mmol/L [facility]ERNER CH Comment:Testing performed by : , [address] [place] [address], [address] CO2 25 22 - 32 mmol/L C[facility]ER CH Comment:Testing performed by : , [address] [place] [address], [address] Anion gap 11 2 - 15 mmol/L C[facility]ER CH Comment:Testing performed by : [address], [address] BUN 6 6 - 25 mg/dL CERNER CH Comment:Testing performed by : [address], [address] Creatinine 0.63 0.60 - 1.10 mg/dL CERNER CH Comment:Testing performed by : [address], [address] Glucose 85 70 - 199 mg/dL CERNER Comment: Interpretive Data Fasting glucose >/= 126 mg/dl is diagnostic for diabetes. Fasting is defined as no caloric intake for at least 8 hours. Fasting glucose between 100 mg/dl to 125 mg/dl is diagnostic of prediabetes. In a patient with classic symptoms of hyperglycemia or hyperglycemic crisis, a random glucose >/= 200 mg/dl is diagnostic for diabetes. In the absence of unequivocal hyperglycemia, results should be confirmed by repeat testing. The classification and Diagnosis of Diabetes Diabetes Care 2021; 46: S19-S40. Current interpretive data was last revised 2022. Testing performed by: [address] [address] Calcium 9.1 8.5 - 10.3 mg/dL CERNER Comment:Testing performed by : [address], [address] Blood 08/16/2024 2:59 PM CDT 08/16/2024 5:59 PM CDT Dionne Fortune NP LAB BLOOD ORDERABLES Final Resu lt Performing Organization Address [facility] de Phone Number SELIN [address] Department [place] [address] * eGFR (08/03/2024 2:54 PM CDT) eGFR >90 >=60 mL/min/1. 73 m2 Comment: Interpretive Data Reference Interval Normal >/= 90 mL/min/1.73m2 Mildly decreased* 60 - 89 mL/min/1.73m2 Mildly to moderately decreased 45 - 59 mL/min/1.73m2 Moderately to severely decreased 30 - 44 mL/min/1.73m2 Severely decreased 15 - 29 mL/min/1.73m2 Kidney Failure < 15 mL/min/1.73m2 *Relative to young adult level Estimated glomerular filtration rate is determined by the 2020 CKD-EPI equation recommended by the National Kidney Foundation (A Unifying Approach to GFR Estimation: Recommendations of the NKF-ASK Task Force on Reassessing the Inclusion of Race in Diagnosing Kidney Disease, JASN 2020). The CKD-EPI equation should not be used for patients with unstable renal function and has not been validated in children and those over 70. Current interpretive data was last reviewed 2020. Testing performed by: , [address] [place] [address]., [address] Blood 08/03/2024 2:54 PM CDT 08/03/2024 7:50 PM CDT us Dionne Fortune NP LAB BLOOD ORDERABLES Final Resu lt Performing Organization Address [facility]/ZIP Co de Phone Number SELIN FORDE [phone] [address] Department [place] [address] * (ABNORMAL) Albumin Creatinine Ratio, Urine (08/03/2024 2:54 PM CDT) Albumin Ur 44.8 mg/L Comment: Interpretive Data No reference range established. Current interpretive data was last revised 2018. Testing performed by: , [address] [place] [address]., [address] Creatinine Ur 37.4 mg/dL SELIN FORDE Comment: Interpretive Data No reference range established. Current interpretive data was last revised 2018. Testing performed by: , [address] [place] [address]., [address] Albumin Creatinine Ratio, Ur 120(H) 1 - 29 mg/g SELIN FORDE Comment:Testing performed by : , [address] [place] [address]., [address] Urine 08/03/2024 2:54 PM CDT 08/03/2024 7:47 PM CDT us Dionne Fortune NP LAB URINE ORDERABLES Final Resu lt SELIN [facility] Department [place] [address] * Lipid panel (08/03/2024 2:54 PM CDT) Cholesterol 115 30 - 199 mg/dL Comment: Interpretive Data Ages < or = 19 years Acceptable: <170 mg/dL Borderline high: 170-199 mg/dL High: >or= 200 mg/dL Ages > or = 20 years Desirable: <200 mg/dL Borderline high: 200-239 mg/dL High: >or= 240 mg/dL Literature References: 1. Expert Panel on Integrated Guidelines for Cardiovascular Health and Risk Reduction in Children and Adolescents. Pediatrics 2011;128:S213 2. NCEP Expert Panel. Circulation 2004;110:227 Current Interpretive Data was last revised on 2017. Testing performed by: , [address] [place] [address]., [address] Triglycerides 103 <=149 mg/dL SELIN FORDE Comment: Interpretive Data Ages < or = 9 years Acceptable: <75 mg/dL Borderline high: 75-99 mg/dL High: >or= 100 mg/dL Ages 10 to 20 years Acceptable: <90 mg/dL Borderline high: 90-129 mg/dL High: >or= 130 mg/dL Ages > or = 20 years Desirable: <150 mg/dL Borderline high: 150-199 mg/dL High: 200-499 mg/dL Very high: >or= 499 mg/dL Literature References: 1. Expert Panel on Integrated Guidelines for Cardiovascular Health and Risk Reduction in Children and Adolescents. Pediatrics 2011;128:S213 2. NCEP Expert Panel. Circulation 2004;110:227 Current Interpretive Data was last revised on 2017. Testing performed by: , [address] [place] [address]., [address] HDL 47 >=40 mg/dL [facility] Comment: Interpretive Data Ages < or = 19 years Acceptable: >45 mg/dL Borderline low: 40-45 mg/dL Low: <40 mg/dL Ages > or = 20 years Desirable: >or= 60 mg/dL Low: <40 mg/dL Literature References: 1. Expert Panel on Integrated Guidelines for Cardiovascular Health and Risk Reduction in Children and Adolescents. Pediatrics 2011;128:S213 2. NCEP Expert Panel. Circulation 2004;110:227 Current Interpretive Data was last revised on 2017. Testing performed by: , [address] [place] [address]., [address] LDL, calculated 49 <=129 mg/dL [facility] Comment: Interpretive Data Ages < or = 19 years Acceptable: <110 mg/dL Borderline high: 110-129 mg/dL High: >or= 130 mg/dL Ages > or = 20 years Optimal: <100 mg/dL Near optimal: 100-129 mg/dL Borderline high: 130-159 mg/dL High: >160 mg/dL Calculated using the [place] LDL-C estimating equation. This equation was implemented on 2023. Prior to this date LDL-C was estimated using the Friedewald equation. Literature References: 1. Expert Panel on Integrated Guidelines for Cardiovascular Health and Risk Reduction in Children and Adolescents. Pediatrics 2011;128:S213 2. NCEP Expert Panel. Circulation 2004;110:227 3. [place] Benjamin al. CARITO Cardiol. 2020 June 22;5(5):540-548. doi: 10.1001/jamacardio.2020.0013 Current Interpretive Data was last revised on 2023. Testing performed by: [address] [address] Non-HDL Cholesterol 68 mg/dL SELIN Comment: Interpretive Data Ages < or = 19 years Acceptable: <120 mg/dL Borderline high: 120-144 mg/dL High: >145 mg/dL Ages > or = 20 years When triglycerides are >200 mg/dL, Non-HDL cholesterol is a secondary target of therapy with treatment goals that are 30 mg/dL greater than the LDL cholesterol target. Literature References: 1. Expert Panel on Integrated Guidelines for Cardiovascular Health and Risk Reduction in Children and Adolescents. Pediatrics 2011;128:S213 2. NCEP Expert Panel. Circulation 2004;110:227 Current Interpretive Data was last revised on 2017. Testing performed by: [address] [address] Chol/HDL ratio 2 SELIN Comment:Testing performed by : [address] [address] Blood 08/03/2024 2:54 PM CDT 08/03/2024 7:47 PM CDT Narrative SELIN - 08/03/2024 8:16 PM CDT These lab test should be done fasting. This means do not eat or drink for at least 12 hours prior to getting your blood drawn. us Dionne Fortune NP LAB BLOOD ORDERABLES Final Resu lt [address] Department [place] [address] * (ABNORMAL) Comprehensive metabolic panel (08/03/2024 2:54 PM CDT) Sodium 128(L) 135 - 145 mmol/L Comment:Testing performed by : [address] [address] Potassium, pl 4.5 3.3 - 4.9 mmol/L SELIN Comment:Testing performed by : [address] [address] Chloride 94(L) 97 - 110 mmol/L SELIN Comment:Testing performed by : [address] [address] CO2 25 22 - 32 mmol/L CERNER CH Comment:Testing performed by : [address] [address] Anion gap 9 2 - 15 mmol/L C[facility]ER CH Comment:Testing performed by : [address] [address] BUN 6 6 - 25 mg/dL [facility]ER CH Comment:Testing performed by : [address], [address] Creatinine 0.57(L) 0.60 - 1.10 mg/dL CERNER CH Comment:Testing performed by : [address], [address] Glucose 95 70 - 199 mg/dL [facility] CH Comment: Interpretive Data Fasting glucose >/= 126 mg/dl is diagnostic for diabetes. Fasting is defined as no caloric intake for at least 8 hours. Fasting glucose between 100 mg/dl to 125 mg/dl is diagnostic of prediabetes. In a patient with classic symptoms of hyperglycemia or hyperglycemic crisis, a random glucose >/= 200 mg/dl is diagnostic for diabetes. In the absence of unequivocal hyperglycemia, results should be confirmed by repeat testing. The classification and Diagnosis of Diabetes Diabetes Care 202; 46: S19-S40. Current interpretive data was last revised 2022. Testing performed by: [address] [address] Calcium 9.1 8.5 - 10.3 mg/dL [facility] CH Comment:Testing performed by : [address] [address] Bilirubin, total 0.3 0.1 - 1.2 mg/dL [facility] CH Comment:Testing performed by : [address] [address] Protein, pl 7.5 6.5 - 8.5 g/dL [facility] CH Comment:Testing performed by : [address] [address] Albumin 4.0 3.5 - 5.0 g/dL [facility] CH Comment:Testing performed by : [address] [address] Alk phos 82 40 - 130 Units/L [facility] CH Comment:Testing performed by : [address], [address] ALT 9 7 - 45 Units/L [facility] Comment:Testing performed by : , [address] [place] [address]., [address] AST 19 10 - 45 Units/L [facility] Comment:Testing performed by : , [address] [place] [address]., [address] Blood 08/03/2024 2:54 PM CDT 08/03/2024 7:47 PM CDT Dionne Fortune NP LAB BLOOD ORDERABLES Final Resu lt [facility] [id number] [place] [address] Department [place] [address] * POCT hemoglobin A1c (08/03/2024 2:24 PM CDT) Hemoglobin A1C, POC 5.4 4.0 - 5.6 % Blood 08/03/2024 2:24 PM CDT Dionne Fortune NP POINT OF CARE TEST ORDERABLES F inal Result * POCT glucose (08/03/2024 2:23 PM CDT) Glucose Blood, POC 108 Normal Fasting 70 - 100, Random <200 mg/dL Blood 08/03/2024 2:23 PM CDT Dionne Fortune NP POINT OF CARE TEST ORDERABLES F inal Result * Screening Mammogram Bilateral W Anthony (12/03/2023 2:54 PM CDT) Anatomical Region Laterality Modality Breast Bilateral Mammography 12/03/2023 5:43 PM CDT Impressions 12/03/2023 5:43 PM CDT There is no mammographic evidence of malignancy. The patient may continue screening mammography as per ACR guidelines. FINAL ASSESSMENT: BI-RADS Category 1: Negative. Electronically signed by: Basia Ray M.D. Narrative 12/03/2023 5:43 PM CDT EXAMINATION: BILATERAL SCREENING MAMMOGRAM WITH TOMOGRAPHY COMPARISON(S): 10/10/2022 TECHNIQUE: Full-field 2D and digital breast tomosynthesis (DBT) images were obtained. CAD was utilized. BREAST PARENCHYMAL COMPOSITION: There are scattered areas of fibroglandular density. FINDINGS: There are no suspicious masses. No suspicious calcifications are seen. There is no unexplained architectural distortion. There is no skin thickening seen. There are no mammographically abnormal lymph nodes seen in the axillae or elsewhere. us Self Screening Mammogram IMG MAMMO PROCEDURES Fi nal Result * CT Chest WO Contrast F/U Lung Screen Protocol (11/19/2023 1:39 PM CDT) Anatomical Region Laterality Modality Chest N/A Computed Tomogra phy 11/22/2023 8:34 AM CDT Narrative 11/22/2023 8:52 AM CDT EXAM DESCRIPTION: CT CHEST WO CONTRAST F/U LUNG SCREEN PROTOCOL REASON FOR STUDY: Screening CT of the chest in a current smoker with a 46 pack year smoking history. Additional history: Multiple pulmonary nodules seen on prior screening lung CT TECHNIQUE: Low dose CT scan of the chest was performed without intravenous contrast using helical scanning technique. The exam extends from the lung apices through the lung bases. Automatic exposure control was used as a dose optimization technique. NOTE: This study was performed for the specific purposes of lung cancer screening and is not an alternative to diagnostic chest CT. RADIATION DOSE: CT dose index volume (CTDIvol) = 2.49 mGy COMPARISON: 04/20/2023, 11/03/2016 FINDINGS: SMOKING RELATED LUNG DISEASE: No significant emphysematous changes. LUNG NODULES: Multiple unchanged pulmonary nodules, including: Unchanged 2 mm medial subpleural superior segment right lower lobe pulmonary nodule (4; 120). Unchanged 3 mm anterior right upper lobe pulmonary nodule (4; 70). Unchanged 3 mm right apical pulmonary nodule (4; 53). Unchanged 2 mm right apical pulmonary nodule (4; 37). Unchanged 4 mm linear nodule in the anterior right upper lobe (4; 65). Decreased conspicuity of right posterolateral right upper lobe 3 mm nodule (4; 68). No new or enlarging suspicious pulmonary nodules. CORONARY ARTERY CALCIFICATION: Mild. OTHER: Trace secretions within the trachea. Subsegmental atelectasis/scarring within the right middle lobe and lingula. Atherosclerotic changes of the thoracic aorta and its major branches without aneurysm. Main pulmonary artery measures within normal limits. Unremarkable appearance of the esophagus. Heart size within normal limits. No pathologically enlarged thoracic lymphadenopathy. Unremarkable appearance of the thyroid. Low-density nodular subcentimeter thickening of the left adrenal gland compatible with nodular hyperplasia. Partially visualized spinal cord stimulator traverses the interlaminar space and courses along the thoracic spinal canal. No aggressive appearing osseous lesions. No acute osseous abnormality. IMPRESSION: 1. Unchanged pulmonary nodules. No new or enlarging suspicious pulmonary nodules. 2. Subcentimeter nodular thickening of left adrenal gland, likely nodular hyperplasia. 3. Mild coronary atherosclerotic calcifications. Lung-RADS category 2: Benign appearance or behavior. Recommendation: Low dose Screening CT of chest in 12 months. THIS IS AN ELECTRONICALLY VERIFIED FINAL REPORT 11/22/2023 8:52 AM - Electronically signed by Shashi Denny M.D. NS: NS Report ID: [id number] Reading Location: [place] [id number] Procedure Note Shashi Denny MD - 11/22/2023 EXAM DESCRIPTION: CT CHEST WO CONTRAST F/U LUNG SCREEN PROTOCOL REASON FOR STUDY: Screening CT of the chest in a current smoker with a46 pack year smoking history. Additional history: Multiple pulmonary nodulesseen on prior screening lung CT TECHNIQUE: Low dose CT scan of the chest was performed without intravenous contrast using helical scanning technique. The exam extends from the lung apices through the lung bases. Automatic exposure control was used as adose optimization technique. NOTE: This study was performed for the specific purposes of lung cancer screening and is not an alternative to diagnostic chest CT. RADIATION DOSE: CT dose index volume (CTDIvol) = 2.49 mGy COMPARISON: 04/20/2023, 11/03/2016 FINDINGS: SMOKING RELATED LUNG DISEASE: No significant emphysematous changes. LUNG NODULES: Multiple unchanged pulmonary nodules, including: Unchanged 2 mm medial subpleural superior segment right lower lobepulmonary nodule (4; 120). Unchanged 3 mm anterior right upper lobe pulmonary nodule (4; 70). Unchanged 3 mm right apical pulmonary nodule (4; 53). Unchanged 2 mm right apical pulmonary nodule (4; 37). Unchanged 4 mm linear nodule in the anterior right upper lobe (4; 65). Decreased conspicuity of right posterolateral right upper lobe 3 mm nodule(4; 68). No new or enlarging suspicious pulmonary nodules. CORONARY ARTERY CALCIFICATION: Mild. OTHER: Trace secretions within the trachea. Subsegmental atelectasis/scarring within the right middle lobe and lingula. Atherosclerotic changes of the thoracic aorta and its major brancheswithout aneurysm. Main pulmonary artery measures within normal limits.Unremarkable appearance of the esophagus. Heart size within normal limits. No pathologically enlarged thoracic lymphadenopathy. Unremarkable appearanceof the thyroid. Low-density nodular subcentimeter thickening of the leftadrenal gland compatible with nodular hyperplasia. Partially visualized spinalcord stimulator traverses the interlaminar space and courses along the thoracic spinal canal. No aggressive appearing osseous lesions. No acute osseous abnormality. IMPRESSION: 1. Unchanged pulmonary nodules. No new or enlarging suspiciouspulmonary nodules. 2. Subcentimeter nodular thickening of left adrenal gland, likelynodular hyperplasia. 3. Mild coronary atherosclerotic calcifications. Lung-RADS category 2: Benign appearance or behavior. Recommendation: Low dose Screening CT of chest in 12 months. THIS IS AN ELECTRONICALLY VERIFIED FINAL REPORT 11/22/2023 8:52 AM - Electronically signed by Shashi Denny M.D. NS: NS Report ID: [id number] Reading Location: [id number] Earle Montemayor MD IMG CT PROCEDURES Final Resul t * Diabetic Eye Exam (06/23/2023) Historical Provider HEALTH MAINTENANCE Final Result * Dexa Axial Skeleton Bone Density 1 or 2 Site (04/02/2023 1:27 PM TRAIN GATE ATTENDANT) Anatomical Region Laterality Modality Body N/A Other 04/02/2023 8:44 PM TRAIN GATE ATTENDANT Narrative 04/02/2023 8:45 PM TRAIN GATE ATTENDANT EXAM DESCRIPTION: DEXA AXIAL SKELETON BONE DENSITY 1 OR MORE SITES REASON FOR STUDY: 68 y/o year old F with given history of: Other specified personal risk factors, not elsewhere classified Screening. Hx of stimulator/pain pump in lower back. 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 REFERENCE: Bone mineral density: Normal (T-score above or = -1.0) Low bone mass (T-score between -1.0 and -2.5) replaces the previously used term osteopenia Osteoporosis (T-score = or below -2.5) Please see below follow up recommendations. Medical evaluation for secondary causes of low bone mineral density may be appropriate. FRAX is a World Health Organization validated fracture risk assessment tool that calculates a person's 10 year probability of a major osteoporosis related fracture and hip fracture. According to the National Osteoporosis Foundation guidelines, postmenopausal women and men age 50 or older with low bone mass and a 10 year probability of a major osteoporosis related fracture = or greater than 20% or a 10 year probability of a hip fracture = or greater than 3% should be considered for pharmacological treatment for the prevention of osteoporosis. For further information, including treatment recommendations, please refer to the 2019 ISCD Official Positions (http://www.iscd.org) and the NOF's Clinician's Guide to Prevention and Treatment of Osteoporosis (http://www.nof.org/professionals/clinical-guidelines) THIS IS AN ELECTRONICALLY VERIFIED FINAL REPORT 04/02/2023 8:45 PM - Electronically signed by Ezequiel Woods M.D. MF: [email or web address] Report ID: [id number] Reading Location: [id number] Procedure Note Ezequiel Woods MD - 04/02/2023 EXAM DESCRIPTION: DEXA AXIAL SKELETON BONE DENSITY 1 OR MORE SITES REASON FOR STUDY: 68 y/o year old F with given history of: Other specified personal risk factors, not elsewhere classified Screening. Hx of stimulator/pain pump in lower back. 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 REFERENCE: Bone mineral density: Normal (T-score above or = -1.0) Low bone mass (T-score between -1.0 and -2.5) replaces thepreviously used term osteopenia Osteoporosis (T-score = or below -2.5) Please see below follow up recommendations. Medical evaluation forsecondary causes of low bone mineral density may be appropriate. FRAX is a World Health Organization validated fracture risk assessmenttool that calculates a person's 10 year probability of a major osteoporosisrelated fracture and hip fracture. According to the National OsteoporosisFoundation guidelines, postmenopausal women and men age 50 or older with low bonemass and a 10 year probability of a major osteoporosis related fracture = or greater than 20% or a 10 year probability of a hip fracture = or greaterthan 3% should be considered for pharmacological treatment for the preventionof osteoporosis. For further information, including treatment recommendations, please referto the 2019 ISCD Official Positions (http://www.iscd.org) and the NOF's Clinician's Guide to Prevention and Treatment of Osteoporosis (http://www.nof.org/professionals/clinical-guidelines) THIS IS AN ELECTRONICALLY VERIFIED FINAL REPORT 04/02/2023 8:45 PM - Electronically signed by Ezequiel Woods M.D. MF: [email or web address] Report ID: [id number] Reading Location: [id number] Earle Montemayor MD IMG DXA PROCEDURES Final Resu lt * COLONOSCOPY (01/08/2021 11:49 AM TRAIN GATE ATTENDANT) Anatomical Region Laterality Modality Other Narrative Procedure Note Shyam Mac MD - 01/08/2021 11:49 AM CST [facility], [place] Patient Name: Aleida Lama Procedure Date: 01/08/2021 11:49AM Date of : 1955 Admit Type: Outpatient Age: 65 Gender: Female Attending MD: Shyam Mac M.D. Room: [facility] 1 Note Status: Finalized Patient Profile: This is a 65 year old female. h/o adenoma polyps.No family h/o colon cancer Procedure: Colonoscopy Indications: Surveillance: Personal history of adenomatouspolyps on last colonoscopy > 5 years ago, Lastcolonoscopy: January 2015 Referring MD: Earle Montemayor M.D. Providers: Shyam Mac M.D. Impression: - Two 3 to 4 mm polyps in the rectum, removed witha jumbo cold forceps. Resected and retrieved. - Internal hemorrhoids. Recommendation: - Await pathology results. - Repeat colonoscopy in 5 years for screeningpurposes. - Continue present medications. Medicines: Monitored Anesthesia Care Complications: No immediate complications. Estimated Blood Loss: Estimated blood loss: none. Procedure: Pre-Anesthesia Assessment: - Prior to the procedure, a History and Physicalwas performed, and patient medications and allergieswere reviewed. The patient's tolerance of previous anesthesia was also reviewed. The risks andbenefits of the procedure and the sedation options and risks were discussed with the patient. All questions were answered, and informed consent was obtained. Prior Anticoagulants: The patient has taken no previous anticoagulant or antiplatelet agents. ASA Grade Assessment: III - A patient with severe systemic disease. After reviewing the risks and benefits,the patient was deemed in satisfactory condition to undergo the procedure. The benefits, risks and alternatives of theprocedure and sedation were discussed and informed consentwas obtained. All questions were answered. Please referto the signed informed consent document in the medical record. The scope was passed under direct vision.The Pediatric Colonoscope PCF-H190L [id number] was introduced through the anus and advanced to the the cecum, identified by appendiceal orifice andileocecal valve. The bowel preparation used was Miralax and bisacodyl tablets via split dose instruction. The quality of the bowel preparation was fair. Bowelprep was administered using a split dose. Findings: The perianal and digital rectal examinations were normal. The cecum appeared normal. The sigmoid colon, descending colon, transverse colon and ascending colon appeared normal. Colon prep was not optimum do small lesionscan be missed. Two flat polyps were found in the rectum. The polyps were 3 to 4 mmin size. These polyps were removed with a jumbo cold forceps. Resectionand retrieval were complete. Internal hemorrhoids were found during retroflexion. The hemorrhoids were medium-sized. Electronically signed by Shyam Mac M.D. Shyam Mac M.D. 01/08/2021 12:38:03 PM Number of Addenda: 0 Note Initiated On: 01/08/2021 11:49 AM Procedure Code(s): --- Professional --- 17118, Colonoscopy, flexible; with biopsy, single or multiple Diagnosis Code(s): --- Professional --- Z86.010, Personal history of colonic polyps K64.8, Other hemorrhoids K62.1, Rectal polyp CPT copyright 2019 [employer]. All rights reserved. The codes documented in this report are preliminary and upon cras reviewmay be revised to meet current compliance requirements. Recognized by the [place] for promoting quality in endoscopy Shyam Mac MD ENDOSCOPY PROCEDURES Final Result * DIABETES FOOT EXAM (08/16/2017) Diabetic Foot Exam Unknown Historical Provider HEALTH MAINTENANCE Final Result from Last 3 Months or Most Recently Relevant to Health Maintenance Insurance MEDICARE [facility] MDCR HMO REF HUMAN CHOICE MEDICARE PPO [employer] CLAIMS OFFICE [facility] IDPA [facility] CHOICE PLUS [facility] MEDICARE ADVANTAGE IDPA Advance Directives For more information, please contact: [phone] * Full Code (Latest Code Status on File) Date Activated Date Inactivated Comments 01/08/2021 11:17 AM 01/08/2021 5:41 PM * Full Code Date Activated Date Inactivated Comments 01/08/2021 11:16 AM 01/08/2021 11:17 AM * Full Code Date Activated Date Inactivated Comments 11/15/2020 9:40 AM 11/15/2020 5:13 PM * Full Code Date Activated Date Inactivated Comments 12/15/2018 8:48 PM 12/16/2018 8:20 PM Care Teams Electrician Relationship Specialty Start Date End Date Earle Montemayor MD PCP - General 05/22/16
--- OUTSIDE RECORDS SUMMARY | 2024-10-10 11:32 | XMS_ITS | Clinical Summary ---
Author Organization [facility] Address [address] [facility], [place] [address] Phone Care Team Providers Care Lube Attendant Name Role Phone Earle Montemayor MD Primary Care Provider Rip Cooney DPM Unavailable [phone] Abby Chow MD Unavailable [phone] Allergies No known active allergies Medications QUEtiapine (SEROQUEL) 100 MG Tablet 0 6 Active levothyroxine (SYNTHROID) 50 MCG Tablet 3 5 Active topiramate (TOPAMAX) 25 MG Tablet 5 5 Active Aspirin 81 MG Tablet Take 81 mg by mouth daily. Active LYRICA 300 MG Capsule 7 Active propranolol (INDERAL) 20 MG Tablet 7 Active morphine (MS CONTIN) 15 MG Tablet Controlled Release 7 Active lovastatin (MEVACOR) 20 MG Tablet 7 Active nystatin (NYSTOP) 510506 UNIT/GM Powder OSCAR AA TID FOR 2 WEEKS 0 7 Active Cyanocobalamin 100 MCG Lozenge 50 mcg. 7 Active mirtazapine (REMERON) 30 MG Tablet 7 Active Topiramate 50 MG Tablet Take by mouth. 5 Active modafinil (PROVIGIL) 200 MG Tablet 8 Active VENTOLIN HFA 108 (90 Base) MCG/ACT Aerosol Solution 8 Active metFORMIN (GLUCOPHAGE) 500 MG Tablet 8 Active NARCAN 4 MG/0.1ML Liquid 8 Active Galcanezumab-g nlm (Emgality) 120 MG/ML Solution Auto-injector INJECT SUBCUTANEOUSLY 120 MG (THE CONTENTS OF 1 PREFILLED PEN) EVERY 30 DAYS 1 Active methylPREDNISo lone (MEDROL DOSPACK) 4 MG Tablet Therapy PackIndication s:Non-recurren t acute serous otitis media of right ear Use as per instructions on package. 21 Tablet 5 Active Active Problems Problem Noted Date Diagnosed Date Dermatophytosis of nail 10/08/2016 Diabetic polyneuropathy asso ciated with type 2 diabetes mellitus 06/24/2016 Fibromyalgia 11/12/2015 Chronic migraine without aur a without status migrainosus, not intractable 11/12/2015 Neuropathy 03/19/2015 Resolved Problems Problem Noted Date Diagnosed Date Resolved Date Paronychia of great toe, right 06/24/2016 10/08/2016 Encounters Date Type Department Care Team Description 08/24/2024 1:00 PM CDT Office Visit [facility] Ear, Nose & Th[facility]at [facility] [address] [facility] [place] [address] Abby Chow MD Non-recurrent acute serous otitis media of right ear (Primary Dx); Hearing loss, unspecified hearing loss type, unspecified laterality; Middle ear effusion, right Discharge Disposition: Discharged to home or Selfcare 08/24/2024 Travel 07/26/2024 2:00 PM CDT Office Visit [facility] Ear, Nose & Throat [facility] [address] [facility] [place] [address] Abby Chow MD Tinnitus of left ear (Primary Dx); Other specified hearing loss of right ear, unspecified hearing status on contralateral side; Non-recurrent acute serous otitis media of right ear; Eustachian tube disorder, bilateral Discharge Disposition: Discharged to home or Selfcare 07/26/2024 Travel from Last 3 Months Immunizations Immunization Administration Dates Next Due Influenza Vaccine greater than 3 yrs 12/13/2014 Family History Medical History Relation Name Comments No Known Problems Brother Cancer Father Diabetes Father Leukemia/Lymphoma Father No Known Problems Maternal Grandfather No Known Problems Maternal Grandmother Diabetes Mother Tuberculosis Mother No Known Problems Paternal Grandfather No Known Problems Paternal Grandmother Seizures Sister Relation Name Status Comments Brother Alive Father Maternal Grandfather Maternal Grandmother Mother Paternal Grandfather Paternal Grandmother Sister Alive Social History Tobacco Use Types Packs/Day Years Used Date Smoking Tobacco: Every Day Cigarettes 1 40 Smokeless Tobacco: Never Tobacco Cessation:Ready to Q uit: Yes Alcohol Use Standard Drinks/Week Comments No 0 (1 standard drink = 0.6 oz pur e alcohol) Comments No Sex and Gender Information Value Date Recorded Sex Assigned at Not on file Legal Sex Female 12:00 AM CDT Gender Identity Not on file Sexual Orientation Not on file Last Filed Vital Signs Vital Sign Reading Time Taken Comments Blood Pressure 120/80 08/24/2024 1:02 PM CDT Pulse 70 08/24/2024 1:02 PM CDT Temperature 36.4 C (97.5 F) 08/24/2024 1:02 PM CDT Respiratory Rate 20 07/26/2024 2:01 PM CDT Oxygen Saturation 96% 08/24/2024 1:02 PM CDT Inhaled Oxygen Concentration - - Weight 81.2 kg (179 lb) 08/24/2024 1:02 PM CDT Height 162.6 cm (5' 4) 08/24/2024 1:02 PM CDT Body Mass Index 30.73 08/24/2024 1:02 PM CDT Plan of Treatment Upcoming Encounters Date Type Department Care Team (Late st Contact Info) Description 10/18/2024 1:00 PM CDT Office Visit [facility] - [facility], [facility] - [place] [address] [facility] [place] [address] Abby Chow MD [address] [facility] [address] [place] [address] Health Maintenance Due Date Last Done Comments Diabetes: Eye Exam 1955 Diabetes: Foot Exam 1955 Hepatitis C Virus (HCV) Screening 1956 Diabetes: Nephropathy Screening 1974 Cologuard 2001 Immunochemical Fecal Occult Blood 2001 Zoster Immunization (1 of 2) 2006 Respiratory Syncytial Virus (RSV) Immunization (Adult) (1 - Risk 60-74 years 1-dose series) 2016 Pneumococcal Immunization (50+ years) (2 of 2 - PPSV23, PCV20, or PCV21) 11/24/2017 09/29/2017 SARS-COV-2 Immunization ( season) 2023 06/25/2020, 06/04/2020 Influenza Immunization (#1) 10/23/202412/25, 11/28/2018, 03/04/2016, Additional history exists Lung Cancer Screening 11/18/2024 11/19/2023 , 03/07/2021, 11/03/2016, Additional history exists Mammogram 12/02/2024 12/03/2023, 09/22, 09/16/2021, Additional history exists Diabetes: Hemoglobin A1c 02/02/2025 025, 05/03/2024, 12/26/2020, Additional history exists DEXA Bone Density 04/02/2025 04/02/2023, 03/24/2021 Colonoscopy 01/08/2031 01/08/2021 Colorectal Cancer Screening 01/08/2031 Pneumococcal Immunization Combined Discontinued 09/29/2017 DTaP/Tdap/Td Immunization Discontinued 09/06/2020 TdaP Immunization Completed 09/06/2020 Hepatitis B Immunization Aged Out No longer eligible based on patient's age to complete this topic Human Papillomavirus (HPV) Immunization Aged Out No longer eligible based on patient's age to complete this topic Meningococcal Immunization (ACWY) Aged Out No longer eligible based on patient's age to complete this topic Rotavirus Immunization Aged Out No lo nger eligible based on patient's age to complete this topic Procedures Procedure Name Priority Date/Time Associated Diagnosis Comments CREATE EARDRUM OPENING,LOCAL ANESTH Today 08/24/2024 1:00 PM CDT Non-recurrent acute serous otitis media of right ear TYMPANOMETRY Routine 07/26/2024 2:00 PM CDT Non-recurrent acute serous otitis media of right ear NASAL ENDOSCOPY,DX Routine 07/26/2024 2: 00 PM CDT Tinnitus of left ear Other specified hearing loss of right ear, unspecified hearing status on contralateral side Non-recurrent acute serous otitis media of right ear Eustachian tube disorder, bilateral CT CHEST SCREENING WO Routine 03/07/2021 9:32 AM COMMUNICATIONS DEPARTMENT CHAIRPERSON Personal history of tobacco use, presenting hazards to health HEMOGLOBIN A1C W/ ESTIMATED GLUCOSE Routine 04/08/2015 1:42 PM COMMUNICATIONS DEPARTMENT CHAIRPERSON Neuropathy from Last 3 Months or Most Recently Relevant to Health Maintenance Results * CREATE EARDRUM OPENING,LOCAL ANESTH (08/24/2024 1:00 PM CDT) Narrative Abby Chow MD - 08/24/2024 1:00 PM CDT Abby Chow MD 08/24/2024 1:57 PM Under direct vision of the microscope and after getting written consent from the patient. The right ear was examined using microscope, phenol application was done to numb the right ear from where the incision will be placed. Myringotomy was used to do a marginal incision, Excessive amount of serous fluid was drained from the middle ear cavity through the incision. Gamino 1.14 mm tube was inserted. Estimated blood loss minimal. Patient tolerated the procedure Abby Chow MD [place] - SURGERY Final Result * TYMPANOMETRY (07/26/2024 2:00 PM CDT) Narrative Jessica Zhou MA - 07/26/2024 2:00 PM CDT Abby Chow MD 07/26/2024 3:48 PM Tympanometry: Right ear: type B curve with normal external canal volume, N/A dapa, ipsilateral reflex absent Left ear: type C curve with normal external canal volume, -129 dapa , ipsilateral reflex present Procedure Note Abby Chow MD - 07/26/2024 2:00 PM CDT Tympanometry: Right ear: type B curve with normal external canal volume, N/A dapa,ipsilateral reflex absent Left ear: type C curve with normal external canal volume, -129 dapa ,ipsilateral reflex present Abby Chow MD [place] - OTORHINOLARYNGOLOGIC Final Result * NASAL ENDOSCOPY,DX (07/26/2024 2:00 PM CDT) Other Narrative Abby Chow MD - 07/26/2024 2:00 PM CDT Abby Chow MD 07/26/2024 3:48 PM Procedure: Rigid Nasal Endoscopy Anesthesia: Bilateral Nasal Cavities sprayed with lidocaine and oxymetazoline Detail: Rigid nasal endoscopy performed bilaterally. We visualized the entire septum as well as the inferior turbinate, middle turbinate, superior turbinate and sphenoethmoid recess. We also visualized the nasopharynx. Unless mentioned below these structures were normal. Septum was deviated to the left. Bilateral nasal cavity showed atrophy of nasal turbinates clear nasopharynx no mucopurulent secretions crusty nasal mucosa dry nasal mucosa EBL: none Abby Chow MD PROCEDURE/MINOR SURGICAL ORDERA BLES Final Result * CT CHEST SCREENING WO (03/07/2021 9:32 AM COMMUNICATIONS DEPARTMENT CHAIRPERSON) Anatomical Region Laterality Modality Chest N/A Computed Tomogra phy 03/07/2021 10:4 9 AM COMMUNICATIONS DEPARTMENT CHAIRPERSON Impressions 03/07/2021 10:51 AM COMMUNICATIONS DEPARTMENT CHAIRPERSON IMPRESSION: 1. A few small lung nodules are noted, measuring up to 4 mm. 2. Minimal emphysema. Lung-RADS v1.1 category 2: Benign appearance or behavior. Recommendation: Continue annual screening low-dose chest CT in 12 months. Narrative 03/07/2021 10:51 AM COMMUNICATIONS DEPARTMENT CHAIRPERSON EXAM DESCRIPTION: CT CHEST SCREENING WO REASON FOR STUDY: Screening CT of the chest in a current smoker with a 50 pack year smoking history. Additional history: Chronic obstructive pulmonary disease. TECHNIQUE: Low dose CT scan of the [...] DOSE: CT dose index volume (CTDIvol) = 4.43 mGy COMPARISON: None available. FINDINGS: SMOKING RELATED LUNG DISEASE: Minimal emphysema. LUNG NODULES: There is a 4 mm nodule in the periphery of the right upper lobe on image 48. Either tiny lung nodules in the right lung are noted, measuring up to 2-3 mm. For reference, there is a 2 mm nodule in the periphery of the right upper lobe on image 56, and a 3 mm nodule is seen in the periphery of the right lower lobe superior segment on image 93. OTHER: Minimal areas of scarring. No focal consolidation. The airways are patent and normal in caliber. No significant bronchial wall thickening. No pleural effusion or pneumothorax. No suspicious lymphadenopathy in the chest. No mediastinal masses. The heart size is normal. Minimal calcified plaques in the proximal LAD. No pericardial effusion. The thoracic aorta is mildly atherosclerotic, but normal in caliber. The pulmonary arteries have normal caliber. Limited images through the upper abdomen are unremarkable. Examination of bone windows demonstrates no suspicious lytic or blastic lesions. Spinal stimulator partially seen, terminating at the level of the lower thoracic spine. THIS IS AN ELECTRONICALLY VERIFIED FINAL REPORT 03/07/2021 10:49 AM - Electronically signed by Robert Wang M.D. RL: [facility] Report ID: [id number] Reading Location: [id number] Procedure Note Robert Wang MD - 03/07/2021 EXAM DESCRIPTION: CT CHEST SCREENING WO REASON FOR STUDY: Screening CT of the chest in a current smoker with a 50 pack year smoking history. Additional history: Chronic obstructive pulmonary disease. TECHNIQUE: Low dose CT scan of the [...] DOSE: CT dose index volume (CTDIvol) = 4.43 mGy COMPARISON: None available. FINDINGS: SMOKING RELATED LUNG DISEASE: Minimal emphysema. LUNG NODULES: There is a 4 mm nodule in the periphery of the right upper lobe on image 48. Either tiny lung nodules in the right lung are noted, measuring up to 2-3 mm. For reference, there is a 2 mm nodule in the periphery of the right upper lobe on image 56, and a 3 mm nodule is seen in the periphery of the right lower lobe superior segment on image 93. OTHER: Minimal areas of scarring. No focal consolidation. The airways are patent and normal in caliber. No significant bronchial wall thickening. No pleural effusion or pneumothorax. No suspicious lymphadenopathy in the chest. No mediastinal masses. The heart size is normal. Minimal calcified plaques in the proximal LAD. No pericardial effusion. The thoracic aorta is mildly atherosclerotic, but normal in caliber. The pulmonary arteries have normal caliber. Limited images through the upper abdomen are unremarkable. Examination of bone windows demonstrates no suspicious lytic or blastic lesions. Spinal stimulator partially seen, terminating at the level of the lower thoracic spine. THIS IS AN ELECTRONICALLY VERIFIED FINAL REPORT 03/07/2021 10:49 AM - Electronically signed by Robert Wang M.D. RL: [facility] Report ID: [id number] Reading Location: [id number] IMPRESSION: 1. A few small lung nodules are noted, measuring up to 4 mm. 2. Minimal emphysema. Lung-RADS v1.1 category 2: Benign appearance or behavior. Recommendation: Continue annual screening low-dose chest CT in 12 months. Earle Montemayor MD [facility] CT ORDERABLES Final Result * HEMOGLOBIN A1C W/ ESTIMATED GLUCOSE (04/08/2015 1:42 PM COMMUNICATIONS DEPARTMENT CHAIRPERSON) HGB-A1C 6.0 4.4 - 6.4 % 04/08/2015 3:02 PM COMMUNICATIONS DEPARTMENT CHAIRPERSON [facility] Est Average Glucose 125.5 mg/dL 04/08/2015 3:02 PM COMMUNICATIONS DEPARTMENT CHAIRPERSON [facility] Blood specimen (specimen) Venipuncture / Unknown 04/08/2015 1:42 PM COMMUNICATIONS DEPARTMENT CHAIRPERSON 04/08/2015 2:19 PM COMMUNICATIONS DEPARTMENT CHAIRPERSON Narrative [facility] - 04/08/2015 3:02 PM COMMUNICATIONS DEPARTMENT CHAIRPERSON HEMOGLOBIN A1C: DIABETIC PATIENTS: WELL-CONTROLLED: 6.2 - 7.0 INTERMEDIATE WELL-CONTROLLED: 7.0 - 9.0 POORLY-CONTROLLED: >9.0 us Ced Christine MD CHEMISTRY ORDERABLES Final R esult [facility] [address] [place] [address] from Last 3 Months or Most Recently Relevant to Health Maintenance Insurance MEDICAID [place] MEDICARE C [facility] Care Teams Lube Attendant Relationship Specialty Start Date End Date Earle Montemayor MD [address] [facility] [place] [address] PCP - General Family Medicine 03/18/15 Rip Cooney DPM [address] [facility] [place] [address] Consulting Physician Podiatry 06/24/16 Abby Chow MD [address] [facility] [address] [address] Consulting Physician Otolaryngology 07/25/24
--- OUTSIDE RECORDS SUMMARY | 2024-10-10 11:32 | XMS_ITS | Encounter Summary ---
Author Organization [facility] Address [address] [place] [address] Phone Care Team Providers Care Laborer Syrup Machine Name Role Phone Ced Christine MD Unavailable [phone] Earle Montemayor MD Primary Care Provider [phone] Rip Cooney DPM Unavailable [phone] Abby Chow MD Unavailable [phone] Reason for Referral * Radiology Services (Routine) - Closed Specialty Diagnoses / Procedures Referred By Contac t Referred To Contact Radiology Diagnoses Personal history of tobacco use, presenting hazards to health Procedures CT CHEST SCREENING WO Earle Montemayor MD [address] [place] [address] Phone: tel: fax: Referral ID Status Reason Start Date Expiration Date Visits Re quested Visits Authorized [id number] Closed 02/20/2021 1 1 R LATCHER Encounter Details Date Type Department Care Team (Late st Contact Info) Description 02/20/2021 Transcribe Orders [facility] Central Scheduling [address] [place] [address] Earle Montemayor MD [address] [facility] [address] [place] [address] Nicotine dependence with nicotine-induced disorder, unspecified nicotine product type (Primary Dx); Personal history of tobacco use, presenting hazards to health Social History Tobacco Use Types Packs/Day Years Used Date Smoking Tobacco: Every Day Cigarettes 1 40 Smokeless Tobacco: Never Alcohol Use Standard Drinks/Week Comments No 0 (1 standard drink = 0.6 oz pur e alcohol) Comments No Sex and Gender Information Value Date Recorded Sex Assigned at Not on file Legal Sex Female 12:00 AM CDT Gender Identity Not on file Sexual Orientation Not on file documented as of this encounter Plan of Treatment Upcoming Encounters Date Type Department Care Team (Late st Contact Info) Description 10/18/2024 1:00 PM CDT Office Visit [facility] - [facility], [facility]ose & [facility] - [place] [address] [place] [address] Abby Chow MD [address] [facility] [address] [address] documented as of this encounter Results * CT CHEST SCREENING WO (03/07/2021 9:32 AM PAPER LATCHER) Anatomical Region Laterality Modality Chest N/A Computed Tomogra phy 03/07/2021 10:4 9 AM PAPER LATCHER Impressions 03/07/2021 10:51 AM PAPER LATCHER IMPRESSION: 1. A few small lung nodules are noted, measuring up to 4 mm. 2. Minimal emphysema. Lung-RADS v1.1 category 2: Benign appearance or behavior. Recommendation: Continue annual screening low-dose chest CT in 12 months. Narrative 03/07/2021 10:51 AM PAPER LATCHER EXAM DESCRIPTION: CT CHEST SCREENING WO REASON [...] Robert Wang M.D. RL: [place] Report ID: [id number] Reading Location: [place] [address] Procedure Note Robert Wang MD - 03/07/2021 [...] Robert Wang M.D. RL: [place] Report ID: [id number] Reading Location: [place] [address] IMPRESSION: 1. A few small lung nodules are noted, measuring up to 4 mm. 2. Minimal emphysema. Lung-RADS v1.1 category 2: Benign appearance or behavior. Recommendation: Continue annual screening low-dose chest CT in 12 months. Earle Montemayor MD IMG CT ORDERABLES Final Result documented in this encounter Visit Diagnoses Diagnosis Nicotine dependence with nicotine-induced disorder, unspecified nicotine product type- Primary Personal history of tobacco use, presenting hazards to health Personal history of tobacco use, presenting hazards to health documented in this encounter Care Teams Laborer Syrup Machine Relationship Specialty Start Date End Date Earle Montemayor MD [address] [place] [address] [address] [place] [address] PCP - General Family Medicine 03/18/15 Ced Christine MD Consulting Physician Neurology 03/18/15 01/09/24 Rip Cooney DPM [address] [place] [address] [address] [place] [address] Consulting Physician Podiatry 06/24/16 Abby Chow MD [address] [facility] [address] [place] [address] Consulting Physician Otolaryngology 07/25/24 documented as of this encounter
--- OUTSIDE RECORDS SUMMARY | 2024-10-10 11:32 | XMS_ITS | Encounter Summary ---
Author Organization [facility] Address [address] [place] [address] Phone Care Team Providers Care Special Warfare Combatant Crewman Name Role Phone Ced Christine MD Unavailable [phone] Earle Montemayor MD Primary Care Provider Rip Cooney DPM Unavailable [phone] Abby Chow MD Unavailable [phone] Encounter Details Date Type Department Care Team (Late st Contact Info) Description 02/19/2021 Transcribe Orders [facility] Central Scheduling [address] [place] [address] Earle Montemayor MD [address] [place] [address] [address] [place] [address] Screening for malignant neoplasm of respiratory organ (Primary Dx); Encounter for screening for malignant neoplasm of respiratory organs Social History Tobacco Use Types Packs/Day Years [...] Group - Ear, Nose & Throat - [place] [address] [place] [address] Abby Chow MD [address] [facility] [address] [place] [address] documented as of this encounter Visit Diagnoses Diagnosis Screening for malignant neoplasm of respiratory organ- Primary Special screening for malignant neoplasm of the respiratory organs Encounter for screening for malignant neoplasm of respiratory organs Special screening for malignant neoplasm of the respiratory organs documented in this encounter Care Teams Special Warfare Combatant Crewman Relationship Specialty Start Date End Date Earle Montemayor MD [address] [facility] [place] [address] PCP - General Family Medicine 03/18/15 Ced Christine MD Consulting Physician Neurology 03/18/15 01/09/24 Rip Cooney DPM [address] [facility] [place] [address] Consulting Physician Podiatry 06/24/16 Abby Chow MD [address] [facility] [address] [address] Consulting Physician Otolaryngology 07/25/24 documented as of this encounter
== END 2024-10-10 10:56 | disposition home or self-care (01) ==
LOC: ANHBWCAUD 10:56
PROVIDERS: PCP Otolaryngology Otolaryngology/Facial Plastic Surgery; Visit Provider Otolaryngology Otolaryngology/Facial Plastic Surgery
DX: H90.3 Sensorineural hearing loss, bilateral (principal)
CPT/HCPCS: 92557; 92567